=== PATIENT | female | born 1980 | race Caucasian/White ===

== ENCOUNTER 2023-11-07 17:30 | Emergency (ER) | payer OTHER, SELFPAY ==
[2023-11-07 17:47] VITALS: BP 104/63; PULSE 108; RESP 18; TEMP 36.6; O2SAT 100
--- NOTE | 2023-11-07 17:55 | ED.EYEPROB ---
HPI - Eye Problem General Chief complaint: Eye Problems Stated complaint: swellon eye Time Seen by Provider: 11/07/23 17:55 Source: patient, RN notes reviewed and old records reviewed Mode of arrival: ambulatory Limitations: no limitations History of Present Illness HPI Narrative: patient presents with complaints of pain and swelling to the left eyelid. She reports symptoms began upon awakening yesterday, got worse today. She denies any injury or trauma, although she does wonder if her child may have kicked her scratched her in her sleep. She denies any visual disturbance. She denies any fever, chills, sweats. She denies discharge from the affected eye Related Data Home Medications Medication Instructions Recorded Confirmed aripiprazole 30 mg tablet 30 mg PO DAILY 11/07/23 11/07/23 haloperidol 5 mg tablet 5 mg PO DAILY 11/07/23 11/07/23 hydroxyzine pamoate 50 mg capsule 50 mg PO DAILY 11/07/23 11/07/23 trazodone 100 mg tablet 100 mg PO DAILY 11/07/23 11/07/23 Allergies Allergy/AdvReac Type Severity Reaction Status Date / Time amoxicillin Allergy Intermediate Rash Verified 11/07/23 17:52 cephalexin Allergy Intermediate Rash Verified 11/07/23 17:52 haloperidol Allergy Intermediate Jittery Verified 11/07/23 17:52 latex Allergy Intermediate Unknown Verified 11/07/23 17:52 Penicillins Allergy Intermediate Rash Verified 11/07/23 17:52 ibuprofen Allergy Unknown Unknown Verified 11/07/23 17:52 acetaminophen AdvReac Unknown Unknown Verified 11/07/23 17:52 Review of Systems Review of Systems: All systems reviewed & are unremarkable except as noted in HPI and below Constitutional: Constitutional: Reports no additional constitutional complaints Eyes: Eyes: Reports as per HPI ENT: Reports system reviewed and no additional complaints, except as documented Cardiovascular: Cardiovascular: Reports no additional cardiovascular complaints Respiratory: Respiratory: Reports no additional respiratory complaints Gastrointestinal: Gastrointestinal: Reports no additional gastrointestinal complaints [facility] Family History Family History Father Hypertension Family history of elevated blood lipids Mother Hypertension Family history of elevated blood lipids Social History Social History Smoking status: Never smoker Alcohol intake: never Comments At the time of my signature, I reviewed and agree with the nursing past medical, surgical, social, and family history. There is no relevant family history pertinent to the patient complaint. Exam Const: General: cooperative, no acute distress, alert and awake Orientation/consciousness: oriented to person, oriented to place and oriented to time HENMT: Head: normal to inspection Eyes: Periorbital: periorbital findings abnormal left periorbital swelling, periorbital tenderness and periorbital erythema; no ecchymosis and no crepitus Resp: Effort & Inspection: normal respiratory effort and able to speak in complete sentences Auscultation: clear to auscultation bilaterally, no crackles, no rales, no rhonchi and no wheezes Cardio: Palpation: normal PMI Rate: regular rate Rhythm: regular rhythm Heart sounds: S1 normal heart sound present and S2 normal heart sound present Neuro: General: oriented to person, oriented to place and oriented to time Cranial nerves: Yes CN's II-XII intact bilaterally Psych: Appearance: grossly normal Thought process: Normal thought process present Insight: Good insight present (Psych) Judgement: Good judgement present (Psych) Course Course Level of Care: Express Care Visit Vital Signs Vital signs: Vital Signs Temperature 97.8 F 11/07/23 17:47 Pulse Rate 108 H 11/07/23 17:47 Respiratory Rate 18 11/07/23 17:47 Blood Pressure 104/63 11/07/23 17:47 Pulse Oximetry 100 11/07/23 17:47 Oxygen Delivery Room Air 11/07/23 17:
== END 2023-11-07 18:16 | disposition home or self-care (01) ==
PROVIDERS: Emergency Provider Nurse Practitioner Family; PCP Nurse Practitioner Family
DX: L03.213 Periorbital cellulitis (principal)
CPT/HCPCS: 99213; G0463

== ENCOUNTER 2025-03-29 16:11 | Emergency (ER) | payer OTHER, SELFPAY ==
[2025-03-29 17:34] VITALS: BP 109/78; PULSE 90; RESP 14; TEMP 36.2; O2SAT 97
--- OUTSIDE RECORDS SUMMARY | 2025-03-29 20:20 | XMS_ITS | Continuity of Care Document ---
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 Anti-nucle ar factor detected 058568646 R76.89 6576798 Would like to see rheum Cigarette smoker 9441868 7 F17.210 247276 Requires latex free nicotine patches Screening mammography 24 150092 Z12.31 7988991954 Menopause finding 928749 006 N95.1 8905055 Fatigue, hot flashes Health Concerns Section Related Observation LastModified by Organization Detai ls LastModified Time None Recorded Concern Status LastModified by Organization Details LastModified Time None Recorded Payers Encounter Date Sequence Insurance Name Policy Number Policy Koehler Covered Member ID Koehler Member ID Guarantor Name 01/25/2025 1 [employer] [id number] Madeleine Zamora [id number] Madeleine Zamora Notes Date Note Type Note Provider Name and Address Organization Details Recorded Time 01/25/2025 text/html Madeleine Zamora is a 44 year old female patient here today for a 1 month FU She notes extreme fatigue for the last 3 weeks, cannot complete ADLs without breaks. She states her watch has been alerting her that her heart rate is in the 40sShe does take 20 mg of haloperidol, trazodone 200 mg, and benadryl at bedtime. She is still experiencing bradycardia. 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
--- OUTSIDE RECORDS SUMMARY | 2025-03-29 20:20 | XMS_ITS | Clinical Summary ---
Author Organization [facility] Address [address] [place] [id number] Care Team Providers Care Poultry Field Service Technician Name Role Phone Marcia Mattson NP Primary Care Provider [phone] Allergies Active Allergy Reactions Criticality Noted Date Comments Cephalexin Unknown 03/22/2024 Penicillins Unknown 03/22/2024 Acetaminophen Unknown 03/22/2024 Encounters Date Type Department Care Team Description 01/15/2025 Telephone [facility] DEFAULT None, Provider, Holter Monitor 01/15/2025 Orders Only [facility] [address] Marcia Mattson NP from Last 3 Months Social History Tobacco Use Types Packs/Day Years Used Date Smoking Tobacco: Never Assessed Comments Unknown Sex and Gender Information Value Date Recorded Sex Assigned at Not on file Legal Sex Female 6:59 PM CDT Gender Identity Not on file Sexual Orientation Not on file Last Filed Vital Signs Vital Sign Reading Time Taken Comments Blood Pressure 111/73 03/22/2024 6:25 PM ELECTROMECHANICAL TECHNICIAN Pulse 94 03/22/2024 6:25 PM ELECTROMECHANICAL TECHNICIAN Temperature 36.2 C (97.2 F) 03/22/2024 6:25 PM ELECTROMECHANICAL TECHNICIAN Respiratory Rate 18 03/22/2024 6:25 PM ELECTROMECHANICAL TECHNICIAN Oxygen Saturation 98% 03/22/2024 6:25 PM ELECTROMECHANICAL TECHNICIAN Inhaled Oxygen Concentration - - Weight 72.6 kg (160 lb) 03/22/2024 6:25 PM ELECTROMECHANICAL TECHNICIAN Height 165.1 cm (5' 5) 03/22/2024 6:25 PM ELECTROMECHANICAL TECHNICIAN Body Mass Index 26.63 03/22/2024 6:25 PM ELECTROMECHANICAL TECHNICIAN Plan of Treatment Health Maintenance Due Date Last Done Comments Cervical Cancer Screening Pa p Smear (Age 30 to 64) Every 3 Years 1982 Annual Physical 1985 Hepatitis C 2000 Hepatitis B Vaccines (1 of 3 - 19+ 3-dose series) 2001 HPV Vaccines (1 - 3-dose SCD M series) 2009 Cervical Cancer Screening Pa p with HPV Testing (Age 30 to 64) Every 5 Years 2012 Cervical Cancer Screening wi th HPV 2012 Mammogram Screening 2022 02/16/2019 DTaP, Tdap and Td Vaccines ( 2 - Td or Tdap) 04/04/2023 04/04/2013 COVID-19 Vaccine ( - 2024-2 6 season) 2024 Influenza Adult (#1) 2025 01/03/2019, 05/27/2016 Hepatitis A Vaccines Aged Out No long er eligible based on patient's age to complete this topic Meningococcal B Vaccine Aged Out No l onger eligible based on patient's age to complete this topic Meningococcal Vaccine Aged Out No erickson emanuel eligible based on patient's age to complete this topic Pneumococcal Vaccine: Pediatrics (0 to 5 Years) and At-Risk Patients (6 to 49 Years) Aged Out No longer eligible b ased on patient's age to complete this topic RSV Immunizations Under 20 Months Aged Out No longer eligible b ased on patient's age to complete this topic Insurance [facility] Care Teams Poultry Field Service Technician Relationship Specialty Start Date End Date Marcia Mattson NP [address] [place] [address] PCP - General NURSE PRACTITIONER 04/04/24
--- OUTSIDE RECORDS SUMMARY | 2025-03-29 20:20 | XMS_ITS | Data Portability ---
Author Organization [facility], Main Office Address [address] [place] [address] Assessment No assessment recorded. Plan of Treatment Reminders Order Date Submit Date Provider Last Modified By Organization Details Last Modified Time Details Appointments Follow Up 15 2025 03:00P WALLACE Escobar Not available Not available Not available Lab pap, IG + HR HPV 2024 025 [place] [facility], [address], [address], [place], [address], 03/09/2025 11:28:55 bacterial vaginosis + vaginitis panel, vaginal 2024 025 [place] [facility], [address], [address], [place], [address], 03/08/2025 17:08:41 estrogen, total, serum [address], [address] [place], [address], 02/01/2025 08:29:46 progester one, serum [address], [address] [place], [address], 02/01/2025 08:29:46 testoster one, free + total, serum [address], [address] [place], [address], 02/01/2025 08:29:46 prolactin , serum [address], [address] [place], [address], 02/01/2025 08:29:46 FSH (follicle -stimulat ing hormone), serum [address], [address] [place], [address], 02/01/2025 08:29:47 lh (luteiniz ing hormone), serum [address], [address] [place], [address], 02/01/2025 08:29:47 lipid panel, serum [address], [address] [place], [address], 01/02/2025 08:10:42 CMP, serum or plasma 2024 025 [place] [facility], [address] [place], [address], 12/27/2024 17:10:36 vitamin D, 25-hydrox y, total, serum [address], [address] [place], [address], 01/02/2025 08:10:41 vitamin B12 + folate, serum or blood [address], [address] [place], [address], 01/02/2025 08:10:41 CBC w/ auto diff [address], [address] [place], [address], 01/02/2025 08:10:41 iron + total iron-bind ing capacity (TIBC), serum [address], [address] [place] [address], [address], 01/02/2025 08:10:41 TSH + free T4, serum [address], [address] [place] [address], [address], 01/02/2025 08:10:41 HbA1c (hemoglob in A1c), blood [address], [address] [place] [address], [address], 01/02/2025 08:10:42 Referral rheumatol ogist referral - Please call patient to schedule an appointme nt. Thank you. 2024 025 [email or web address] [facility], [address], [address], [place], [address], 03/06/2025 12:06:38 pelvic floor therapy referral - Please call patient to schedule an appointme nt. Thank you. 2024 025 [email or web address] [facility], [address] [facility], [place], [address], 03/06/2025 12:07:09 Procedures None recorded. Surgeries None recorded. Imaging MAMMO, screening , digital, bilateral - Please call patient to schedule. 2024 025 [email or web address] [facility] ([facility]), [address] [place] [address], [address], 02/27/2025 12:06:11 Medication Orders Airsupra 90 mcg-80 mcg/actua tion HFA aerosol inhaler 2024 025 [id number], [address] [facility], [place], [place], [id number], 01/25/2025 14:50:03 nicotine 21 mg/24 hr daily transderm al patch 2024 [place] [facility]48720, [address] [facility], [place], [place], [id number], 01/25/2025 14:50:00 azithromy mary 250 mg tablet [address] [facility]347, [address] [facility], [place], [place], [id number], 12/26/2024 09:50:37 promethaz ine-DM 6.25 mg-15 mg/5 mL oral syrup [address] [facility]78524, [address] [facility], [place], [place], [phone], 12/26/2024 09:51:11 doxycycli ne hyclate 100 mg capsule [address], [address] [facility], [place], [place], [id number], 12/26/2024 09:50:48 Patient TargetsNo targets recorded. Patient InstructionsNo instructions recorded. 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 Thank you. Referring Physician: Marcia Mattson [facility], Encounter Date: 01/25/2025 Pelvic Floor Therapy Referra l for Pelvic congestion syndrome Please call patient to schedule an appointment. Thank you. Referring Physician: Marcia Mattson [facility], Encounter Date: 01/25/2025 Results Created Date Observation Date Name Description Value Unit Range Abnormal Flag Note LastModifiedBy Organization Detail LastModifiedTime Result Notes None recorded. 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 Not Available [facility] 3 17:13:37 Nausea 210575049 Active Not Available [facility] 3 17:13:38 Pain of hip region 08953836 Active Not Available [facility] 3 17:13:38 Urinary tract infectiou s disease 40770352 Completed Not Available [facility] 3 17:13:38 Acid reflux 489104861 Active Not Available [facility] 3 17:13:38 Snoring 79599409 Active Not Available [facility] 3 17:13:38 Hypersomn ia 93414194 Active Not Available [facility] 3 17:13:38 Epigastri c pain 98781532 Active Not Available [facility] 3 17:13:38 Chronic pain 77140423 Active Not Available [facility] 3 17:13:38 Tobacco user 074517539 Active 2017 Not Available [facility] 3 17:13:37 Insomnia 485512172 Active 2018 Not Available [facility] 3 17:13:37 Depressiv e disorder 89351364 Active 2018 Not Available [facility] 3 17:13:37 Mass of right breast 50270053558 802391 Active 2018 Not Available [facility] 3 17:13:37 Bronchiti s 66783354 Active 2023 WALLACE Staton [address], [address], [place], [address] , [facility] 4 15:20:27 Pneumonia 909065310 Active 2023 BERNADETTE Giron [address], [address], [place], [address] , [facility] 4 12:47:51 Rib pain 151744127 Active 2023 BERNADETTE Giron [address], [address], [place], [address] , [facility] 4 12:55:55 Fatigue 33497436 Active 2024 WALLACE Staton [address], [address], [place], [address] , [facility] 5 10:23:45 Acute diarrhea 831639225 Active 2024 WALLACE Staton [address], [address], [place], [address] , [facility] 5 10:24:31 Bradycard ia 11380918 Active 2024 WALLACE Staton [address], [address], [place], [address] , [facility] 5 10:25:51 Vitamin D deficienc y 69653424 Active 2024 WALLACE Staton [address], [address], [place], [address] , [facility] 5 13:57:57 Pelvic congestio n syndrome 74850023 Active 2024 WALLACE Staton [address], [address], [place], [address] , [facility] 5 14:41:44 Asthma - currently active 401245013 Active 2024 WALLACE Staton [address], [address], [place], [address] , [facility] 5 14:42:00 Anti-nucl ear factor detected 827960653 Active 2024 WALLACE Staton [address], [address], [place], [address] , [facility] [employer] [facility] 14:43:25 Smoke inhalatio n injury 094878482 Active 2024 WALLACE Staton [address] [facility], [place] [address], [place], [address] , [facility] [employer] [facility] 14:46:08 Cigarette smoker 38758881 Active 2024 WALLACE Staton [address] [facility], [place] [address], [place], [address] , [facility] [employer] [facility] [employer] [facility] 14:46:18 Menopause finding 393616633 Active 2024 WALLACE Staton [address] [facility], [place] [address], [place], [address] , [facility] [employer] [facility] 14:51:45 Polycysti c ovary syndrome 040446832 Active 2024 WALLACE Staton [address] [facility], [place] [address], [place], [address] , [facility] [employer] [facility] [employer] [facility] 14:39:37 Problem Notes None recorded. Procedures Surgical History Date Name Laterality Status Provider Name and Address Organization Details Recorded Time 03/07/20 Date of Last Pap Smear completed Dora Gonsalves RN [facility] [employer] 03/07/2025 16:00:43 Breast Biopsy completed Not Available [facility] 06/02/2022 17:12:38 other completed Not Available [facility] 04/2022 17:12:38 Tubal Ligation completed Not Available [facility] 06/02/2022 17:12:38 Appendectomy completed [facility]/02[facility]2022 17:12:38 Imaging Results None recorded. Procedure Notes None recorded. Medical Equipment None Reported. Allergies Allergen ID Allergen Name Allergen Category Reaction Reaction Severity Criticality Documentation Date Start Date Code Code System Note Provider Name and Address Organization Details Recorded Time 82778 Product containin g penicilli n (product) medicatio n other Not available Not available 06/02/2022 71376 8000 SNOMED messe s with TMJ makes jaw lock up Not Available [facility] 3 17:14:44 55577 latex environme nt,medica tion rash Not available Not available 06/02/2022 09389 91 RxNorm swell ing Not Available [facility] 3 17:14:45 00009 Keflex medicatio n other Not available Not available 06/02/2022 00047 7 RxNorm messe s with TMJ makes jaw lock up Not Available [facility] 3 17:14:45 45780 acetamino phen medicatio n other Not available Not available 06/02/2022 161 RxNorm can have it but not strai ght it has to be mixed with somet tim else Not Available [facility] 3 17:14:45 12897 amoxicill in medicatio n diarrhea Not available Not available 06/02/2022 723 RxNorm Dora Gonsalves RN [facility], [place] - S [employer] 4 15:07:55 15334 cephalexi n medicatio n Not available Not available Not available 02/18/20252023 2231 RxNorm unrec ogniz ed react ion (text : Unkno wn, code: [id number]) (from [facility]) Not Available [place] - External Data Service - prod 5 [...] (BMI) Body weight Body temperature Heart rate Respiratory rate Oxygen saturation Pain severity - 0-10 verbal numeric rating [Score] - Reported Systolic And Diastolic Provider Name and Address Organization Details Last Updated DateTime 5 165.1 cm 26.4 kg/m2 18420.7 4 g 97.5 [degF] 99 /min 20 /min 97 % 0 110/70 mm[Hg] Dora Gonsalves RN [facility] [employer] [facility] 5 12:13:20 Date Recorded Body height Body mass index (BMI) Body weight Body temperature Heart rate Respiratory rate Oxygen saturation Pain severity - 0-10 verbal numeric rating [Score] - Reported Systolic And Diastolic Provider Name and Address Organization Details Last Updated DateTime 5 165.1 cm 28.7 kg/m2 68449.6 4 g 97.3 [degF] 91 /min 24 /min 99 % 4 92/70 mm[Hg] Dora Gonsalves RN [facility] [employer] [facility] 5 09:54:15 Date Recorded Body height Body mass index (BMI) Body weight Body temperature Heart rate Oxygen saturation Pain severity - 0-10 verbal numeric rating [Score] - Reported Respiratory rate Systolic And Diastolic Provider Name and Address Organization Details Last Updated DateTime 5 165.1 cm 28.7 kg/m2 46449.2 9 g 97.3 [degF] 84 /min 98 % 0 20 /min 110/80 mm[Hg] Dora Gonsalves RN [facility] [employer] [facility] 5 14:33:14 Date Recorded Body height Body mass index (BMI) Body weight Body temperature Heart rate Oxygen saturation Pain severity - 0-10 verbal numeric rating [Score] - Reported Respiratory rate Systolic And Diastolic Provider Name and Address Organization Details Last Updated DateTime 5 165.1 cm 28.6 kg/m2 81182.5 9 g 97.2 [degF] 98 /min 98 % 4 24 /min 106/78 mm[Hg] Dora Gonsalves RN [facility] [employer] [facility] 5 14:24:06 Date Recorded Body height Body mass index (BMI) Body weight Body temperature Heart rate Respiratory rate Oxygen saturation Pain severity - 0-10 verbal numeric rating [Score] - Reported Systolic And Diastolic Provider Name and Address Organization Details Last Updated DateTime 5 165.1 cm 28.7 kg/m2 75067.9 4 g 97.3 [degF] 83 /min 20 /min 97 % 4 120/90 mm[Hg] Dora Gonsalves RN [place] [facility] 5 16:00:14 Social History Question Answer Notes LastModified by Organization Details LastModified Time Tobacco Smoking Status Current Every Day Smoker Not Available [employer] 06/02/2022 17:12:29 Do You Have An Advance Directive? No MIGRATION.0301 972176 Information not available 06/02/2022 Are You Blind Or Do You Have Difficulty Seeing? No MIGRATION.0301 084730 Information not available 06/02/2022 What Is Your Level Of Caffeine Consumption? Heavy MIGRATION.0301 535893 Information not available 06/02/2022 In The 14 Days Before Symptom Onset, Have You Had Close Contact With A Laboratory-confi rmed COVID-19 While That Case Was Ill? No MIGRATION.0301 410417 Information not available 06/02/2022 In The 14 Days Before Symptom Onset, Have You Had Close Contact With A Person Who Is Under Investigation For COVID-19 While That Person Was Ill? No MIGRATION.0301 371895 Information not available 06/02/2022 Are You Deaf Or Do You Have Serious Difficulty Hearing? No MIGRATION.0301 274203 Information not available 06/02/2022 What Type Of Diet Are You Following? REGULAR MIGRATION.0301 156615 Information not available 06/02/2022 Which Illicit Or Recreational Drugs Have You Used? Marijuana MIGRATION.030 954123 Information not available 06/02/2022 Have There Been Any Changes To Your Family Or Social Situation? No MIGRATION.0301 335058 Information not available 06/02/2022 Are There Any Guns Present In Your Home? No MIGRATION.0301 914644 Information not available 06/02/2022 Do You Use Insect Repellent Routinely? No MIGRATION.0301 376902 Information not available 06/02/2022 Where [facility] You Live? [facility] Information not available 12/14/2023 Do You Have A Medical Power Of Truck Manager? No MIGRATION.0301 669571 Information not available 06/02/2022 Do You Have Any Pets? Yes MIGRATION.0301 666294 Information not available 06/02/2022 What Is Your Relationship Status? MIGRATION.0301 466835 Information not available 06/02/2022 Do You Use Your Seat Belt Or Car Seat Routinely? Yes MIGRATION.0301 994509 Information not available 06/02/2022 Do You Have Smoke And Carbon Monoxide Detectors In Your Home? Yes MIGRATION.0301 765114 Information not available 06/02/2022 Are There Any Smokers In Your House? Yes Smoke Outside MIGRATION.0301 022586 Information not available 06/02/2022 Do You Participate In Social Media? Yes MIGRATION.0301 520178 Information not available 06/02/2022 Do You Use Sunscreen Routinely? No MIGRATION.0301 975610 Information not available 06/02/2022 Has Tobacco Cessation Counseling Been Provided? No MIGRATION.0301 013133 Information not available 06/02/2022 Have You Recently Traveled Abroad? No MIGRATION.0301 543237 Information not available 06/02/2022 Have You Used IV Drugs? No MIGRATION.0301 439035 Information not available 06/02/2022 Do You Have Difficulty Walking Or Climbing Stairs? No MIGRATION.0301 269608 Information not available 06/02/2022 Do You Have Any Dietary Restrictions? No MIGRATION.0301 221405 Information not available 06/02/2022 Sex: Female Functional Status Question Answer Note LastModified by Organizat ion Details LastModified Time Do you use any illicit or recreational drugs? Yes Ocassionally MIGRATION.09456 06062 Information not available 06/02/2022 Do you or have you ever used any other forms of tobacco or nicotine? No MIGRATION.69087 30757 Information not available 06/02/2022 What is your level of alcohol consumption? Occasional MIGRATION.48843 99425 Information not available 06/02/2022 Are you currently employed? No Information not available 12/14/2023 Do you have transportation difficulties? No MIGRATION.20318 68837 Information not available 06/02/2022 Are you able to walk independently without assistance or assistive devices? YESWOREST MIGRATION.52955 60093 Information not available 06/02/2022 Do you have difficulty doing errands alone? No MIGRATION.11499 11407 Information not available 06/02/2022 Are you able to care for yourself independently? Yes MIGRATION.42354 01374 Information not available 06/02/2022 Do you have difficulty dressing, bathing, grooming, or toileting? No MIGRATION.04274 70705 Information not available 06/02/2022 What is your exercise level? Occasional MIGRATION.97748 93809 Information not available 06/02/2022 Mental Status Question Answer Note LastModified by Organizat ion Details LastModified Time Do you feel stressed (tense, restless, nervous, or anxious, or unable to sleep at night)? [id number] Information not available 12/14/2023 Do you have difficulty concentrating, remembering or making decisions? Yes MIGRATION.80389760 26 Information not available 06/02/2022 Family History Relationship Description Onset Age of this Age Resolved Age Notes LastModified by Organization Details LastModified Time Mother Hypertensive disorder MIGRATION.076 [id number] Not available 06/02/2022 17:12:38 Father Hypertensive disorder MIGRATION.727 9928001 Not available 06/02/2022 17:12:38 Father Hypercholest erolemia MIGRATION.060 5805195 Not available 06/02/2022 17:12:38 Paternal Aunt Malignant neoplasm of colon Spread ed to breast and liver MIGRATION.327 4204806 Not available 06/02/2022 17:12:38 Maternal Aunt Sarcoidosis MIGRAT ION.885 1948337 Not available 06/02/2022 17:12:39 Maternal Aunt Multiple sclerosis MIGRATION.901 4054030 Not available 06/02/2022 17:12:39 Notes:Father: Fatty liver [...] Recorded Time Tdap 4 completed Not Available [facility] 06/02/2022 17:14:40 Influenza, split virus, quadrivalent, preservative 7 completed Not Available [facility] 06/02/2022 17:14:40 Influenza, split virus, quadrivalent, PF 9 completed Not Available [facility] 06/02/2022 17:14:40 Past Encounters Encounter ID Performer Location Encounter Start Date Encounter Closed Date Diagnosis/Indication Diagnosis SNOMED-CT Code Diagnosis ICD10 Code Diagnosis IMO Codes Diagnosis Note [id number] Mino Yusuf MD [facility] [address] [place] [address] 10/30/2020 00:00:00 10/30/2020 17:04:58 [id number] Mino Yusuf MD [facility] [address] [place] [address] 10/31/2020 00:00:00 10/31/2020 14:36:21 [id number] Mino Yusuf MD [facility] [address] [place] [address] 06/10/2021 00:00:00 06/10/2021 18:40:10 [id number] Mino Yusuf MD [facility] [address] [place] [address] 12/14/2023 14:52:44 12/14/2023 15:26:12 Bronchitis 60032333 J40 [id number] Mino Yusuf MD [facility] [address] [place] [address] 04/02/2024 12:25:13 04/02/2024 12:55:34 Nausea 401047347 R11.0 Pneumonia 061276491 J18. 9 Rib pain 583149020 R07.8 1 right posterior lower [id number] Mino Yusuf MD [facility] [address] [place] [address] 04/27/2024 11:51:50 04/27/2024 12:34:28 Pneumonia 470752976 J18.9 Was diagnosed with pneumonia in ER on 03/23, completed Zpak, then returned with continuing symptoms. Was given ciprofloxa mary and prednisone , mild improvemen t then symptoms returned [id number] Mino Yusuf MD [address] [address] 12/26/2024 09:39:33 12/26/2024 10:53:33 Fatigue 84210213 R53.83 92625961 Unable to complete ADLs Acute diarrhea 983403318 R19.7 00108 Will do stool samples pending labs Hyperlipid emia screening 622082389 Z13.220 012949 Bradycardia 60853389 R00 .1 29172 Will do event monitor pending labsGettin g alerts daily of heart rate at 45 [id number] WALLACE Staton [address] [address] 01/25/2025 14:13:19 01/25/2025 16:02:31 Pelvic congestion syndrome 30833482 N94.89 6655057 Diagnosed approx 12 years ago, she has not had any treatment for this. Notes flares. Asthma - c urrently active 684891007 J45.909 627949 Morning and night time cough Anti-nucle ar factor detected 937393811 R76.89 8259041 Would like to see rheum Cigarette smoker 9441208 7 F17.210 388784 Requires latex free nicotine patches Screening mammography 24 731926 Z12.31 1052402823 Menopause finding 261595 006 N95.1 1255600 Fatigue, hot flashes [id number] WALLACE Staton [address] [address] 02/20/2025 14:04:12 02/20/2025 15:09:53 [id number] WALLACE Staton [address] [address] 03/07/2025 15:34:23 03/07/2025 17:16:30 Gynecologic examination 73703798 Z01.419 Overall healthyDis cussed vaginal hygiene and safe sex practicesD iscussed monthly self breast examsPatie nt questions answered Health Concerns Section Related Observation LastModified by Organization Detai ls LastModified Time None Recorded Concern Status LastModified by Organization Details LastModified Time None Recorded Advance Directives Directive N: Payers Insurance Date Sequence Insurance Name Policy Number Policy Koehler Covered Member ID Koehler Member ID Guarantor Name 02/01/2025 1 [facility] ([facility]) [employer] Madeleine Zamora [id number] Madeleine Zamora 12/26/2024 1 [facility] - DOS PRIOR TO 2024 (MEDICAID REPLACEMENT - HMO) [id number] Madeleine Zamora [id number] Madeleine Zamora 03/04/2025 1 [facility] (O) [employer] Madeleine Zamora [id number] Madeleine Zamora 02/01/2025 1 [employer] [id number] Madeleine Zamora [id number] Madeleine Zamora 01/29/2025 2 [employer] (EPO) Madeleine Zamora [id number] Madeleine Zamora 01/28/2025 2 [employer] (EPO) Madeleine Zamora [id number] Madeleine Zamora Notes Date Note Type Note Provider Name and Address Organization Details Recorded Time 04/27/2024 text/html Bad cough when laying flat, resolved if sits upright. Was diagnosed with pneumonia in 4Completed ciprofloxacin and prednisone last week WALLACE Staton [address] [facility] [address], [address], [facility] 04/27/2024 12:33:11 12/26/2024 text/html Madeleine Zamora is a 43 year old female patient here today for sick concerns. She notes extreme fatigue for the last 3 weeks, cannot complete ADLs without breaks. She states her watch has been alerting her that her heart rate is in the 40sShe does take 20 mg of haloperidol, trazodone 200 mg, and benadryl at bedtime. She also notes she has been experiencing diarrhea for the last 3 weeks. She states she is having 1 episode per day with soft stool. WALLACE Staton [address], [address], [place], [address], [employer]. 12/26/2024 11:18:27 01/25/2025 text/html Madeleine Zamora is a 44 [...] for pelvic congestion syndrome and positive GLYNN WALLACE Staton [address], [address], [place], [address], [employer]. 01/25/2025 16:01:37 03/07/2025 text/html Pap/PelvicReport ed by PatientHPIFor context, patient reportsappt for screening pap/pelvic/breast exam. For associated factors, patient reportsno risk factor for cervical cancer,no history of mary ii/iii,no abnormal pap smears,low risk sexual history, andup to date mammogram.PCOS and PCS, chronic pain.Pain has bee radiating down inner legs. WALLACE Staton [address], [address], [place], [address], [employer]. 03/07/2025 17:14:35 OBGyn Episode No OBEpisode recorded.
--- OUTSIDE RECORDS SUMMARY | 2025-03-29 20:21 | XMS_ITS | Clinical Summary ---
Author Organization [facility] Address [address] [place] [address] Care Team Providers Care Transit Man Name Role Phone Dora Mckeon Leann [facility] Primary Care Provider Allergies Active Allergy Reactions Criticality Noted Date Comments Acetaminophen Other (See Comments) High 12/21/2018 MIGRAINES to acetaminophen alone, but takes vicodin without problem Amoxicillin Diarrhea,Abdominal Pain Medium 02/22/2019 Cephalexin Hives High 12/21/2018 Jaw swelling, aggravated TMJ Latex Rash High 12/21/2018 Slight swelling, uses benadryl Penicillins Hives,Other (See Comments) High 12/21/2018 swelling of jaw, aggravated TMJ As an adult Medications Syringe with Needle, Safety (ECLIPSE SYRINGE) 3 mL 25 gauge x 1 Syringe Eclipse Syringe 3 mL 25 gauge x 1 USE UTD WITH DEPO Q 3 MONTHS Active hydrOXYzine HCl (ATARAX) 50 mg tablet Take 50 mg by mouth 4 times daily as needed. 1 9 Active QUEtiapine (SEROquel) 200 mg tablet Take 200 mg by mouth daily. 0 9 Active QUEtiapine (SEROquel) 300 mg tablet Take 500 mg by mouth daily at bedtime. 1 9 Active traZODone (DESYREL) 50 mg tablet Take 50 mg by mouth daily at bedtime. 0 9 Active medroxyPROGESTE Lul (DEPO-PROVERA) 150 mg/mL Suspension ADM 1 ML IM Q 3 MONTHS 0 9 Active phenylephrine HCl (SINEX REGULAR BOTH NOSTRIL) Administer 2 Sprays in each nostril daily at bedtime. Sinex Severe Active meloxicam (MOBIC) 7.5 mg tablet Take 1 Tablet (7.5 mg) by mouth daily. 5 Tablet 02/26/2019 9:56 AM [employer] 9 Active Active Problems Problem Noted Date Diagnosed Date Chronic pain 02/16/2019 Temporomandibular joint disorder 02/16/2019 Fibroadenoma of breast, right 12/21/2018 Depressive disorder 07/31/2018 Insomnia 07/31/2018 Tobacco user 01/23/2018 Cigarette dependence Resolved Problems Problem Noted Date Diagnosed Date Resolved Date Other signs and symptoms in breast 01/16/2019 01/25/2019 Abnormal ultrasound of breast 01/16/2019 01/25/2019 Family History Medical History Relation Name Comments High Cholesterol Father Hypertension Father Breast Cancer Maternal Aunt 1 great Breast Cancer Maternal Aunt 2 great Colon Cancer Maternal Aunt 3 Diabetes Maternal Grandfather Heart Disease Maternal Grandfather High Cholesterol Mother Breast Cancer Paternal Aunt Leukemia Paternal Grandmother High Cholesterol Sister Healthy Son 1 Healthy Son 2 Healthy Son 3 Lung Cancer Neg Hx Melanoma Neg Hx Ovarian Cancer Neg Hx Relation Name Status Comments Father Alive Maternal Aunt 1 great (Age 92) Maternal Aunt 2 great Maternal Aunt 3 Alive Maternal Grandfather (Age 75) Maternal Grandmother Alive Mother Alive Paternal Aunt Alive Paternal Grandfather Paternal Grandmother Sister Alive Son 1 Alive Son 2 Alive Son 3 Alive Social History Tobacco Use Types Packs/Day Years Used Date Smoking Tobacco: Some Days Cigarettes 0.3 10 Smokeless Tobacco: Never Tobacco Cessation:Ready to Q uit: No Comments:CHEWABLE CBD GUMMIES; 4 cigs/day Alcohol Use Standard Drinks/Week Comments Not Currently 0 (1 standard drink = 0.6 oz pur e alcohol) Comments No Sex and Gender Information Value Date Recorded Sex Assigned at Not on file Legal Sex Female 1:28 PM CDT Gender Identity Not on file Sexual Orientation Not on file Occupation Industry Job Start Date Job End Date stay at home mom Not on file Not on file Not on file Last Filed Vital Signs Vital Sign Reading Time Taken Comments Blood Pressure 118/72 03/02/2019 10:56 AM [employer] Pulse 84 02/26/2019 9:57 AM [employer] IN[employer]CTOR Temperature 36.7 C (98.1 F) 03/02/2019 10:56 AM [employer] IN[employer]CTOR Respiratory Rate 16 02/26/2019 9:57 AM [employer] IN[employer]CTOR Oxygen Saturation 98% 02/26/2019 9:57 AM [employer] IN[employer]CTOR Inhaled Oxygen Concentration - - Weight 62.1 kg (137 lb) 03/02/2019 10:56 AM [employer] IN[employer] Height 165.1 cm (5' 5) 03/02/2019 10:56 AM [employer] Body Mass Index 22.8 03/02/2019 10:56 AM [employer] IN[employer]CTOR Plan of Treatment Health Maintenance Due Date Last Done Comments HEPATITIS B VACCINES (1 of 3 - 19+ 3-dose series) 2001 HPV/Cotest (21-29) 12/29/2003 CERVICAL CANCER SCREENING 2012 HPV/Cotest (30-65) 2012 PAP SMEAR 2012 BREAST CANCER SCREENING 2022 02/16/2019, 11/10 DTAP/TDAP/TD VACCINES (2 - Td or Tdap) 04/04/2023 INFLUENZA VACCINE (#1) 2024 01/03/2019, 2016 HPV VACCINES (No Doses Required) Completed Medical Devices Implanted Type Area Business Analyst Manager Device Identifier Shelf Expiration Date Model / Serial / Lot Ligaclip Xtra Ti Sm Cartridge 6 Lt100 - [id number] Implanted:Qty: 1 on 02/26/2019 by Mallorie Medrano MD at [facility] Right: Breast [employer] LT100 / / Procedures Procedure Name Priority Date/Time Associated Diagnosis Comments MAMMO DIAG UNI LEFT 3D FUNMI W OR WO CAD Routine 02/16/2019 10:50 AM [employer] IN[employer]CTOR Benign neoplasm of right breast from Last 3 Months or Most Recently Relevant to Health Maintenance Results * MAMMO DIAG UNI LEFT 3D FUNMI W OR WO CAD (02/16/2019 10:50 AM [employer]URE INSTRUCTOR) Anatomical Region Laterality Modality Breast Left Mammography 02/16/2019 10:5 0 AM [employer] IN[employer]CTOR Impressions 02/16/2019 11:52 AM [employer] MANUFACTURE INSTRUCTOR IMPRESSION: 1.4 cm lobulated mass in the lower inner quadrant of the left breast. RECOMMENDATIONS: Focused left breast ultrasound. DICTATION LOCATION: [facility] Narrative 02/16/2019 11:52 AM [employer]EL MANUFA[employer]URE INSTRUCTOR EXAM: LEFT BREAST FULL-FIELD DIGITAL DIAGNOSTIC MAMMOGRAM WITH CAD WITH 3D TOMOSYNTHESIS DATE: 02/16/2019 10:50 AM HISTORY: Masses in the right breast on prior mammogram and ultrasound with biopsy demonstrating fibroadenomas. No left mammogram was obtained at that time. TECHNIQUE: Full-field digital mammography was performed on the left breast. Low dose full field digital breast tomosynthesis examination was performed with 2D and 3D acquisitions. Examination is read in conjunction with computer aided detection. COMPARISON: None, this is patient's baseline examination of the left breast. BREAST COMPOSITION: Heterogeneously dense, which limits the sensitivity of mammography. FINDINGS: There is a lobulated mass in the lower inner quadrant of the left breast measuring 1.4 cm in size. Margins are fairly smooth and this likely represents fibroadenoma. Ultrasound is recommended for confirmation. OVERALL FINAL ASSESSMENT: BI-RADS CATEGORY 0: Incomplete, needs additional imaging evaluation Mallorie Medrano MD MAMMO ORDERABLES Final Result from Last 3 Months or Most Recently Relevant to Health Maintenance Insurance [facility] [place] [address] [place] [address] RX [facility] [employer] Advance Directives For more information, please contact: [phone] * Full Code (Latest Code Status on File) Date Activated Date Inactivated Comments 02/26/2019 8:20 AM 02/26/2019 12:36 PM * Full Code Date Activated Date Inactivated Comments 02/26/2019 7:56 AM 02/26/2019 8:19 AM Care Teams Transit Man Relationship Specialty Start Date End Date Dora Mckeon FNP [address] [facility] [address] [place] [address] PCP - General Nurse Practitioner Family 12/21/18
--- OUTSIDE RECORDS SUMMARY | 2025-03-29 20:21 | XMS_ITS | Continuity of Care Document ---
Author Organization [place] - [facility], [facility] Shaun Address [address] [facility] [place] [address] Assessment No assessment recorded. Plan of Treatment Reminders Order Date Submit Date Provider Last Modified By Organization Details Last Modified Time Details Appointments Follow Up 15 2025 03:00P M Marcia Mattson, CASH REGISTER SERVICER Not available Not available Not available Lab pap, IG + HR HPV 2024 025 [place] [facility], [address], [place], [address], 03/09/2025 11:28:55 bacterial vaginosis + vaginitis panel, vaginal 2024 025 [place] [facility], [address], [place], [address], 03/08/2025 17:08:41 Referral None recorded. Procedures None recorded. Surgeries None recorded. Imaging None recorded. Medication Orders None recorded. Patient TargetsNo targets recorded. Patient InstructionsNo instructions recorded. Reason for Referral None Reported. Results Created Date Observation Date Name Description Value Unit Range Abnormal Flag Note LastModifiedBy Organization Detail LastModifiedTime Result Notes None recorded. Problems Name Problem SNOMED Code Status Onset Date Resolution Date Notes Provider Name and Address Organization Details Recorded Time Migraine 04925365 Active Not Available [facility] 3 17:13:37 Allergic bronchiti s 496001139 Completed Not Available [facility] 3 17:13:37 Esophagea l dysphagia 93807727 Active Not Available [facility] 3 17:13:37 Temporoma ndibular joint disorder 80262977 Active Not Available [facility] 3 17:13:37 Nausea 293463303 Active Not Available [facility] 3 17:13:38 Pain of hip region 08819468 Active Not Available [facility] 3 17:13:38 Urinary tract infectiou s disease 89770139 Completed Not Available [facility] 3 17:13:38 Acid reflux 066353566 Active Not Available [facility] 3 17:13:38 Snoring 85972763 Active Not Available [facility] 3 17:13:38 Hypersomn ia 73718425 Active Not Available [facility] 3 17:13:38 Epigastri c pain 64835097 Active Not Available [facility] 3 17:13:38 Chronic pain 34141911 Active Not Available [facility] 3 17:13:38 Tobacco user 599286844 Active 2017 Not Available [facility] 3 17:13:37 Insomnia 627665000 Active 2018 Not Available [facility] 3 17:13:37 Depressiv e disorder 53132257 Active 2018 Not Available [facility] 3 17:13:37 Mass of right breast 60642899338 225300 Active 2018 Not Available [facility] 3 17:13:37 Bronchiti s 24088458 Active 2023 WALLACE Staton [address], [address], [place], [address] , [employer] [facility] [employer] 4 15:20:27 Pneumonia 054880903 Active 2023 BERNADETTE Giron [address], [place], [address] , [employer] [facility] [employer] 4 12:47:51 Rib pain 851936172 Active 2023 BERNADETTE Giron [address], [address], [place], [address] , [employer] [facility] [employer] 4 12:55:55 Fatigue 83097045 Active 2024 WALLACE Staton [address], [address], [place], [address] , [facility] [employer] [facility] 5 10:23:45 Acute diarrhea 485615788 Active 2024 WALLACE Staton [address], [address], [place], [address] , [facility] [employer] [facility] 5 10:24:31 Bradycard ia 69174467 Active 2024 WALLACE Staton [address], [address], [place], [address] , [facility] [employer] [facility] 5 10:25:51 Vitamin D deficienc y 11647320 Active 2024 WALLACE Staton [address], [address], [place], [address] , [facility] [employer] [facility] 5 13:57:57 Pelvic congestio n syndrome 66156308 Active 2024 WALLACE Staton [address], [address], [place], [address] , [facility] [employer] [facility] 14:41:44 Asthma - currently active 671018675 Active 2024 WALLACE Staton [address], [address], [place], [address] , [facility] [employer] [facility] 5 14:42:00 Anti-nucl ear factor detected 715479824 Active 2024 WALLACE Staton [address], [place], [address] , [facility] [employer] [facility] 5 14:43:25 Smoke inhalatio n injury 773642895 Active 2024 WALLACE Staton [address], [address], [place], [address] , [place] [facility] [employer] [facility] 14:46:08 Cigarette smoker 51592621 Active 2024 WALLACE Staton [address] [facility], [facility] [address], [place], [address] , [employer] [facility] [employer] [facility] 14:46:18 Menopause finding 232785602 Active 2024 WALLACE Staton [address] [facility], [facility] [address], [place], [address] , [facility] [employer] [facility] [employer] [facility] 14:51:45 Polycysti c ovary syndrome 208167496 Active 2024 WALLACE Staton [address] [facility] [address], [place], [address] , [employer] [facility] [employer] 14:39:37 Problem Notes None recorded. Procedures Surgical History Date Name Laterality Status Provider Name and Address Organization Details Recorded Time 03/07/20 Date of Last Pap Smear completed Dora Gonsalves RN [facility] [employer] [facility] 03/07/2025 16:00:43 Breast Biopsy completed Not Available [facility] 06/02/2022 17:12:38 other completed Not Available [facility] 04/2022 17:12:38 Tubal Ligation completed Not Available [facility] 06/02/2022 17:12:38 Appendectomy completed Not Available [facility] 06/02/2022 17:12:38 Imaging Results None recorded. Procedure Notes None recorded. Medical Equipment None Reported. Allergies Allergen ID Allergen Name Allergen Category Reaction Reaction Severity Criticality Documentation Date Start Date Code Code System Note Provider Name and Address Organization Details Recorded Time 81526 Product containin g penicilli n (product) medicatio n other Not available Not available 06/02/2022 83843 8001 SNOMED messe s with TMJ makes jaw lock up Not Available [facility] 17:14:44 25254 latex environme nt,medica tion rash Not available Not available 06/02/2022 85486 91 RxNorm swell ing Not Available [facility] 17:14:45 16702 Keflex medicatio n other Not available Not available 06/02/202278969 7 RxNorm messe s with TMJ makes jaw lock up Not Available [facility] 3 17:14:45 04922 acetamino phen medicatio n other Not available Not available 06/02/2022 161 RxNorm can have it but not strai ght it has to be mixed with somet tim else Not Available [facility] 3 17:14:45 40827 amoxicill in medicatio n diarrhea Not available Not available 06/02/2022 723 RxNorm Dora Gonsalves RN null, [place] [employer] 4 15:07:55 99895 cephalexi n medicatio n Not available Not available Not available 02/18/20252023 2231 RxNorm unrec ogniz ed react ion (text : Unkno wn, code: [id number]) (from [facility]) Not Available [place] - External Data Service - prod 5 [...] Updated DateTime 5 165.1 cm 28.7 kg/m2 87226.9 4 g 97.3 [degF] 83 /min 20 /min 97 % 4 120/90 mm[Hg] Dora Gonsalves RN [place] [facility] 16:00:14 Social History Question Answer Notes LastModified by Organization Details LastModified Time Tobacco Smoking Status Current Every Day Smoker Not Available [facility] 06/02/2022 17:12:29 Do You Have An Advance Directive? No MIGRATION.0301 164626 Information not available 06/02/2022 Are You Blind Or Do You Have Difficulty Seeing? No MIGRATION.0301 847219 Information not available 06/02/2022 What Is Your Level Of Caffeine Consumption? Heavy MIGRATION.0301 498057 Information not available 06/02/2022 In The 14 Days Before Symptom Onset, Have You Had Close Contact With A Laboratory-confi rmed COVID-19 While That Case Was Ill? No MIGRATION.0301 786129 Information not available 06/02/2022 In The 14 Days Before Symptom Onset, Have You Had Close Contact With A Person Who Is Under Investigation For COVID-19 While That Person Was Ill? No MIGRATION.0301 005560 Information not available 06/02/2022 Are You Deaf Or Do You Have Serious Difficulty Hearing? No MIGRATION.0301 267206 Information not available 06/02/2022 What Type Of Diet Are You Following? REGULAR MIGRATION.0301 658569 Information not available 06/02/2022 Which Illicit Or Recreational Drugs Have You Used? Marijuana MIGRATION.0301 564707 Information not available 06/02/2022 Have There Been Any Changes To Your Family Or Social Situation? No MIGRATION.0301 333286 Information not available 06/02/2022 Are There Any Guns Present In Your Home? No MIGRATION.0301 723923 Information not available 06/02/2022 Do You Use Insect Repellent Routinely? No MIGRATION.0301 035283 Information not available 06/02/2022 Where Do You Live? [facility] Information not available 12/14/2023 Do You Have A Medical Power Of Tieing Machine Operator? No MIGRATION.0301 452258 Information not available 06/02/2022 Do You Have Any Pets? Yes MIGRATION.0301 813211 Information not available 06/02/2022 What Is Your Relationship Status? MIGRATION.0301 135727 Information not available 06/02/2022 Do You Use Your Seat Belt Or Car Seat Routinely? Yes MIGRATION.0301 430494 Information not available 06/02/2022 Do You Have Smoke And Carbon Monoxide Detectors In Your Home? Yes MIGRATION.0301 343992 Information not available 06/02/2022 Are There Any Smokers In Your House? Yes Smoke Outside MIGRATION.0301 249706 Information not available 06/02/2022 Do You Participate In Social Media? Yes MIGRATION.0301 262425 Information not available 06/02/2022 Do You Use Sunscreen Routinely? No MIGRATION.0301 627272 Information not available 06/02/2022 Has Tobacco Cessation Counseling Been Provided? No MIGRATION.0301 241225 Information not available 06/02/2022 Have You Recently Traveled Abroad? No MIGRATION.0301 579560 Information not available 06/02/2022 Have You Used IV Drugs? No MIGRATION.0301 727689 Information not available 06/02/2022 Do You Have Difficulty Walking Or Climbing Stairs? No MIGRATION.0301 767136 Information not available 06/02/2022 Do You Have Any Dietary Restrictions? No MIGRATION.0301 798738 Information not available 06/02/2022 Sex: Female Functional Status Question Answer Note LastModified by Organizat ion Details LastModified Time Do you use any illicit or recreational drugs? Yes Ocassionally MIGRATION.39244 37169 Information not available 06/02/2022 Do you or have you ever used any other forms of tobacco or nicotine? No MIGRATION.71549 13037 Information not available 06/02/2022 What is your level of alcohol consumption? Occasional MIGRATION.27583 51144 Information not available 06/02/2022 Are you currently employed? No Information not available 12/14/2023 Do you have transportation difficulties? No MIGRATION.22246 65498 Information not available 06/02/2022 Are you able to walk independently without assistance or assistive devices? YESWOREST MIGRATION.67898 62598 Information not available 06/02/2022 Do you have difficulty doing errands alone? No MIGRATION.42167 14349 Information not available 06/02/2022 Are you able to care for yourself independently? Yes MIGRATION.16690 08116 Information not available 06/02/2022 Do you have difficulty dressing, bathing, grooming, or toileting? No MIGRATION.30961 99432 Information not available 06/02/2022 What is your exercise level? Occasional MIGRATION.91213 76694 Information not available 06/02/2022 Mental Status Question Answer Note LastModified by Organizat ion Details LastModified Time Do you feel stressed (tense, restless, nervous, or anxious, or unable to sleep at night)? [id number] Information not available 12/14/2023 Do you have difficulty concentrating, remembering or making decisions? Yes MIGRATION.42149016 26 Information not available 06/02/2022 Family History Relationship Description Onset Age of this Age Resolved Age Notes LastModified by Organization Details LastModified Time Mother Hypertensive disorder MIGRATION.731 [id number] Not available 06/02/2022 17:12:38 Father Hypertensive disorder MIGRATION.138 [id number] Not available 06/02/2022 17:12:38 Father Hypercholest erolemia MIGRATION.657 2808155 Not available 06/02/2022 17:12:38 Paternal Aunt Malignant neoplasm of colon Spread ed to breast and liver MIGRATION.671 [id number] Not available 06/02/2022 17:12:38 Maternal Aunt Sarcoidosis MIGRAT ION.061 1064791 Not available 06/02/2022 17:12:39 Maternal Aunt Multiple sclerosis MIGRATION.975 [id number] Not available 06/02/2022 17:12:39 Notes:Father: Fatty liver [...] Recorded Time Tdap 4 completed Not Available [employer] 06/02/2022 17:14:40 Influenza, split virus, quadrivalent, preservative 7 completed Not Available [facility] 06/02/2022 17:14:40 Influenza, split virus, quadrivalent, PF 9 completed Not Available [facility] 06/02/2022 17:14:40 Past Encounters Encounter ID Performer Location Encounter Start Date Encounter Closed Date Diagnosis/Indication Diagnosis SNOMED-CT Code Diagnosis ICD10 Code Diagnosis IMO Codes Diagnosis Note [id number] WALLACE Staton [facility] [address] 02/20/2025 14:04:12 02/20/2025 15:09:53 [id number] WALLACE Staton Dwaine_Damian [address] [address] 03/07/2025 15:34:23 03/07/2025 17:16:30 Gynecologic examination 14242743 Z01.419 Overall healthyDis cussed vaginal hygiene and safe sex practicesD iscussed monthly self breast examsPatie nt questions answered Health Concerns Section Related Observation LastModified by Organization Detai ls LastModified Time None Recorded Concern Status LastModified by Organization Details LastModified Time None Recorded Payers Encounter Date Sequence Insurance Name Policy Number Policy Koehler Covered Member ID Koehler Member ID Guarantor Name 03/07/2025 1 [id number] Madeleine Zamora [id number] Madeleine Zamora Notes Date Note Type Note Provider Name and Address Organization Details Recorded Time 03/07/2025 text/html Pap/PelvicReport ed by PatientHPIFor context, patient reportsappt for screening pap/pelvic/breast exam. For associated factors, patient reportsno risk factor for cervical cancer,no history of mary ii/iii,no abnormal pap smears,low risk sexual history, andup to date mammogram.PCOS and PCS, chronic pain.Pain has bee radiating down inner legs. WALLACE Staton [address] [facility], [facility] [address], [place], [address], [place] [employer] 03/07/2025 17:14:35 OBGyn Episode No OBEpisode recorded.
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
== END 2025-03-29 19:48 | disposition left against medical advice (07) ==
LOC: ANHED 20:19
PROVIDERS: PCP Nurse Practitioner Family
DX: M25.551 Pain in right hip (principal)
CPT/HCPCS: 99199